=== PATIENT | male | born 1970 | race Caucasian/White ===

== ENCOUNTER 2018-11-06 17:45 | Emergency (ER) | payer MEDICAID, OTHER ==
[~2018-11-06] VITALS: Ht 165.1 cm; Wt 63.6 kg
[~2018-11-06 17:45] MED LIST: CIPR7.5D RIGHT EAR
[2018-11-06 18:00] VITALS: Ht 165.1 cm; Wt 63.6 kg
[2018-11-06] MEDS ORDERED: CIPROFLOXACIN HCL OTIC DROP 0.25 ML RIGHT EAR SCH ×2 (19:00→19:30)
[2018-11-06 19:44] VITALS: BP 148/72; PULSE 77; RESP 16
== END 2018-11-06 19:45 | disposition home or self-care (01) ==
LOC: FTE 17:45
DX: S00.411A Abrasion of right ear, initial encounter (principal); X58.XXXA Exposure to other specified factors, initial encounter; Y92.9 Unspecified place or not applicable
CPT/HCPCS: Z7502; Z7610; 99283